=== PATIENT | male | born 1965 | race Caucasian/White ===

== ENCOUNTER 2020-04-26 05:07 | Day surgery (SDC) | payer BC ==
[2020-04-23 09:49] VITALS: BMI 25.1
[2020-04-26 10:15] VITALS: TEMP 97.7
[2020-04-26 11:35] VITALS: BP 109/69; PULSE 58
--- NOTE | 2020-04-29 17:02 | PATH ---
Surgical Pathology Report Patient Name: MARQUEZ RALPH [facility]. Rec. #: [id number] /Age/Gender: 1965 (Age: 54) / M Account: [id number] Location: [facility]-ENDOSCOPY Taken: 04/26/2020 Received: 04/26/2020 Reported: 04/29/2020 Physicians: Devendra Dominique M.D. Specimen(s) Received A: CECAL POLYP B: ASCENDING COLON POLYP Clinical History History of colon polyps Postoperative diagnosis: Polyp cecum, ascending colon polyp, hemorrhoids Final Diagnosis A. CECAL POLYP, BIOPSY: POLYPOID COLONIC MUCOSA WITH FOCAL SURFACE HYPERPLASTIC CHANGE. B. ASCENDING COLON POLYP, POLYPECTOMY: TUBULAR ADENOMA. Electronically Signed Jaron Valle M.D. Gross Description A. Received in formalin, labeled "biopsy cecal polyp" is a genao, irregular portion of soft tissue measuring 0.2 cm. in greatest dimension. The specimen is submitted in toto in one cassette. B. Received in formalin, labeled "biopsy ascending colon polyp" is a genao, irregular portion of soft tissue measuring 0.3 cm. in greatest dimension. The specimen is submitted in toto in one cassette. DL/04/26/2020 saudi/04/26/2020
== END 2020-04-26 11:30 | disposition home or self-care (01) ==
LOC: JASU-ENDO 05:07
PROVIDERS: ATTEND Internal Medicine Gastroenterology
PROC: 0DBH8ZX Excision of Cecum, Via Natural or Artificial Opening Endoscopic, Diagnostic (ICD-10-PCS; 2020-04-26)
PROC: 0DBK8ZX Excision of Ascending Colon, Via Natural or Artificial Opening Endoscopic, Diagnostic (ICD-10-PCS; principal; 2020-04-26 10:00)
DX: Z86.010 Personal history of colon polyps (principal); D12.0 Benign neoplasm of cecum; D12.2 Benign neoplasm of ascending colon; K57.30 Diverticulosis of large intestine without perforation or abscess without bleeding
CPT/HCPCS: 88305-TC